=== PATIENT | male | born 1970 | race Caucasian/White ===

== ENCOUNTER 2017-06-14 08:10 | Emergency (ER) | payer OTHER ==
[~2017-06-14] VITALS: Ht 170.2 cm; Wt 63.5 kg
[2017-06-14 08:16] VITALS: BP_SYST 113
[2017-06-14 09:19] VITALS: BP_SYST 110
== END 2017-06-14 09:19 | disposition home or self-care (01) ==
LOC: SED 08:10
DX: J18.9 Pneumonia, unspecified organism (principal)
CPT/HCPCS: 71045; 99283

== ENCOUNTER 2022-04-28 08:50 | Emergency (ER) | payer MEDICAID, OTHER ==
[~2022-04-28] VITALS: Ht 170.2 cm; Wt 59.0 kg
[2022-04-28 09:02] VITALS: BP_SYST 144
[2022-04-28] MEDS ORDERED: CEPH-548 PO ×2 (09:33)
[2022-04-28 09:50] VITALS: BP_SYST 144
== END 2022-04-28 09:54 | disposition home or self-care (01) ==
LOC: SED 08:50
DX: L03.116 Cellulitis of left lower limb (principal); R21 Rash and other nonspecific skin eruption; Z79.899 Other long term (current) drug therapy
CPT/HCPCS: 99283

== ENCOUNTER 2022-04-30 08:13 | Inpatient (IN) | payer MEDICAID ==
[~2022-04-30] VITALS: Ht 170.2 cm; Wt 63.0 kg
[~2022-04-30 08:13] MED LIST: CEPH-548 PO
[2022-04-30 08:15] VITALS: BP_SYST 113
[2022-04-30] MEDS ORDERED: cefTRIAXone 1 GM IVPB PREMIX 50 ML IV ONE (08:30)
[2022-04-30] MEDS ORDERED: KETOROLAC TROMETHAMINE 30 MG VIAL IVP ONE (08:45)
[2022-04-30 09:06] LABS: BASOPHILS # (AUTO) 0.1 K/uL (0.0-0.2); BASOPHILS % (AUTO) 0.7 % (0.0-2.0); EOSINOPHILS # (AUTO) 0.1 K/uL (0.0-0.4); EOSINOPHILS % (AUTO) 1.3 % (0.0-4.0); HEMATOCRIT 39.5 % (36-54); HEMOGLOBIN 13.2 g/dL (14.0-18.0); LYMPHOCYTES # (AUTO) 0.8 K/uL (1.0-5.5); LYMPHOCYTES % (AUTO) 9.5 % (20.5-51.5); MEAN CORPUSCULAR HEMOGLOBIN 31 pg (27-31); MEAN CORPUSCULAR HGB CONC 33 % (32-36); MEAN CORPUSCULAR VOLUME 92 fL (79.0-98.0); NEUTROPHILS # (AUTO) 6.7 K/uL (1.8-7.7); NEUTROPHILS % (AUTO) 77.5 % (40.0-70.0); PLATELET COUNT (AUTO) 208 K/uL (130-430); RED CELL DISTRIBUTION WIDTH 13.8 % (9.0-15.0); WHITE BLOOD COUNT (AUTO) 8.6 K/uL (4.8-10.8)
[2022-04-30 09:14] LABS: ANION GAP 8 (5-15); CALCIUM 9.1 mg/dL (8.4-11.0); CHLORIDE 101 mmol/L (98-107); CREATININE 1.03 mg/dL (0.55-1.30); GLUCOSE 90 mg/dL (70-99); UREA NITROGEN, BLOOD 8 mg/dL (8-21)
[2022-04-30 09:15] LABS: GFR AFRICAN AMERICAN 98 mL/min (>90)
[2022-04-30 09:18] LABS: ALANINE AMINOTRANSFERASE 36 U/L (12-78); ALBUMIN 3.8 g/dL (3.4-4.8); ASPARTATE AMINOTRANSFERASE 27 U/L (10-37); TOTAL BILIRUBIN 0.3 mg/dL (0.0-1.0)
[2022-04-30] MEDS ORDERED: MORPHINE 4 MG INJ. 4 MG/ML VIAL IVP ONE (12:15)
[2022-04-30] MEDS ORDERED: guaiFENesin/DEXTROMETHORPHAN 10 ML UDC PO PRN (16:00)
[2022-04-30] MEDS ORDERED: DOCUSATE SODIUM 100 MG/10 ML UDC PO PRN (16:00)
[2022-04-30] MEDS ORDERED: KETOROLAC TROMETHAMINE 15 MG VIAL IM ONE (16:00)
[2022-04-30] MEDS ORDERED: ONDANSETRON HCL 4 MG/2 ML VIAL IVP PRN (16:00)
[2022-04-30] MEDS ORDERED: ZOLPIDEM TARTRATE 5 MG TABLET PO PRN (16:00)
[2022-04-30] MEDS ORDERED: MORPHINE 2 MG/ML INJ. SYRINGE IVP PRN (16:00)
[2022-04-30 16:14] LABS: PROTHROMBIN TIME 10.3 SECS (9.5-12.5)
[2022-04-30] MEDS: NACL 0.9% 1,000 ML IV SCH (16:24)
[2022-04-30 17:20] LABS: PHOSPHORUS 3.4 mg/dL (2.7-4.5); THYROID STIMULATING HORMONE 1.47 uIu/mL (0.34-4.82)
[2022-04-30] MEDS: PIPERACILLIN/TAZO 3.375/DEX-IS 50 ML IV SCH (18:06)
[2022-04-30 19:38] LABS: FREE T4 (FREE THYROXINE) 1.2 ng/dL (0.6-1.6)
[2022-04-30 19:56] LABS: BILIRUBIN,URINE NEGATIVE (NEGATIVE); BLOOD, URINE NEGATIVE (NEGATIVE); CLARITY/URINE CLEAR (CLEAR); COLOR,URINE YELLOW (YELLOW); GLUCOSE,URINE NEGATIVE (NEGATIVE); KETONES,URINE NEGATIVE (NEGATIVE); LEUKOCYTE ESTERASE ,URINE NEGATIVE (NEGATIVE); NITRITE, URINE NEGATIVE (NEGATIVE); PH,URINE 6.5 (5.0-8.0); PROTEIN URINE NEGATIVE (NEGATIVE); UROBILINOGEN,URINE 0.2 (0.2-1.0)
[2022-04-30 20:12] LABS: BARBITURATE, URINE NEGATIVE (NEG <=200)
[2022-04-30 20:13] LABS: BENZODIAZEPINE, URINE NEGATIVE (NEG <=150); CANNABINOID, URINE NEGATIVE (NEG <=50); COCAINE, URINE NEGATIVE (NEG <=150); METHAMPHETAMINES SCREEN,URINE NEGATIVE (NEG <=500); OPIATE, URINE POSITIVE (NEG <=100); PHENCYCLIDINE SCREEN,URINE NEGATIVE (NEG <=25); UR TRICYCLIC ANTIDEPRESSANTS POSITIVE (NEG <=300); URINE AMPHETAMINE NEGATIVE (NEG <=500); URINE METHADONE NEGATIVE (NEG <=200); URINE OXYCODONE SCREEN NEGATIVE (NEG <=100); URINE PROPOXYPHENE SCREEN NEGATIVE (NEG <=300)
[2022-04-30] MEDS: ACETAMINOPHEN 500 MG TABLET PO PRN (20:34)
[2022-04-30 20:40] VITALS: BP_SYST 108
[2022-05-01 00:53] VITALS: BP_SYST 102
[2022-05-01] MEDS: PIPERACILLIN/TAZO 3.375/DEX-IS 50 ML IV SCH ×4 (05:43→17:46)
[2022-05-01 07:13] LABS: BASOPHILS % (AUTO) 0.9 % (0.0-2.0); EOSINOPHILS # (AUTO) 0.2 K/uL (0.0-0.4); EOSINOPHILS % (AUTO) 4.2 % (0.0-4.0); HEMATOCRIT 35.2 % (36-54); HEMOGLOBIN 11.9 g/dL (14.0-18.0); LYMPHOCYTES # (AUTO) 1.2 K/uL (1.0-5.5); MEAN CORPUSCULAR HEMOGLOBIN 31 pg (27-31); MEAN CORPUSCULAR HGB CONC 34 % (32-36); MEAN CORPUSCULAR VOLUME 92 fL (79.0-98.0); MONOCYTES # (AUTO) 0.7 K/uL (0.0-1.0); MONOCYTES % (AUTO) 12.9 % (1.7-9.3); NEUTROPHILS # (AUTO) 3.1 K/uL (1.8-7.7); PLATELET COUNT (AUTO) 188 K/uL (130-430); RED BLOOD CELL COUNT(AUTO) 3.84 MIL/uL (4.2-6.2); RED CELL DISTRIBUTION WIDTH 13.7 % (9.0-15.0); WHITE BLOOD COUNT (AUTO) 5.2 K/uL (4.8-10.8)
[2022-05-01 07:45] VITALS: BP_SYST 131
[2022-05-01 07:52] LABS: CALCIUM 8.9 mg/dL (8.4-11.0)
[2022-05-01] MEDS: NACL 0.9% 1,000 ML IV SCH ×3 (08:00→15:56)
[2022-05-01] MEDS ORDERED: POTASSIUM CHLORIDE 20 MEQ TAB.PRT.SR PO PRN (09:00)
[2022-05-01] MEDS: PANTOPRAZOLE SODIUM 40 MG TAB PO SCH (09:22)
[2022-05-01] MEDS: HYDROcodone/ACETAMIN 7.5-325 MG TAB PO PRN ×2 (09:24→20:09)
[2022-05-01 11:59] VITALS: BP_SYST 116
[2022-05-01 17:49] VITALS: BP_SYST 103
[2022-05-01] MEDS ORDERED: VANCOMYCIN HCL 1 GM/NS PREMIX 250 ML IV ONE (22:00)
[2022-05-01] MEDS ORDERED: VANCOMYCIN HCL 1000 MG/VIAL IV ONE (23:23)
[2022-05-02] MEDS: PIPERACILLIN/TAZO 3.375/DEX-IS 50 ML IV SCH ×4 (00:15→17:27)
[2022-05-02 01:32] VITALS: BP_SYST 100
[2022-05-02] MEDS ORDERED: AMOX-423 PO ×2 (07:48)
[2022-05-02 08:00] VITALS: BP_SYST 97
[2022-05-02] MEDS: NACL 0.9% 1,000 ML IV SCH ×3 (08:00→16:00)
[2022-05-02 08:23] LABS: BASOPHILS # (AUTO) 0.1 K/uL (0.0-0.2); BASOPHILS % (AUTO) 1.2 % (0.0-2.0); EOSINOPHILS # (AUTO) 0.2 K/uL (0.0-0.4); EOSINOPHILS % (AUTO) 4.6 % (0.0-4.0); HEMATOCRIT 37.9 % (36-54); HEMOGLOBIN 12.6 g/dL (14.0-18.0); LYMPHOCYTES # (AUTO) 1.4 K/uL (1.0-5.5); LYMPHOCYTES % (AUTO) 29.4 % (20.5-51.5); MEAN CORPUSCULAR HEMOGLOBIN 31 pg (27-31); MEAN CORPUSCULAR HGB CONC 33 % (32-36); MEAN CORPUSCULAR VOLUME 92 fL (79.0-98.0); MONOCYTES # (AUTO) 0.6 K/uL (0.0-1.0); MONOCYTES % (AUTO) 12.1 % (1.7-9.3); NEUTROPHILS # (AUTO) 2.5 K/uL (1.8-7.7); NEUTROPHILS % (AUTO) 52.7 % (40.0-70.0); PLATELET COUNT (AUTO) 208 K/uL (130-430); RED BLOOD CELL COUNT(AUTO) 4.11 MIL/uL (4.2-6.2); RED CELL DISTRIBUTION WIDTH 14.1 % (9.0-15.0); WHITE BLOOD COUNT (AUTO) 4.8 K/uL (4.8-10.8)
[2022-05-02 08:44] LABS: CALCIUM 8.8 mg/dL (8.4-11.0); CREATININE 1.12 mg/dL (0.55-1.30)
[2022-05-02] MEDS: PANTOPRAZOLE SODIUM 40 MG TAB PO SCH (09:01)
[2022-05-02 11:56] VITALS: BP_SYST 115
[2022-05-02] MEDS: VANCOMYCIN HCL 750 MG in NS 250 ML IV SCH (11:58)
[2022-05-02 18:08] VITALS: BP_SYST 114
[2022-05-02 20:00] VITALS: BP_SYST 110
[2022-05-03] VITALS: BP_SYST 110
[2022-05-03] MEDS: PIPERACILLIN/TAZO 3.375/DEX-IS 50 ML IV SCH ×4 (00:57→17:13)
[2022-05-03] MEDS: NACL 0.9% 1,000 ML IV SCH ×3 (00:58→16:00)
[2022-05-03] MEDS: VANCOMYCIN HCL 750 MG in NS 250 ML IV SCH ×2 (01:04→11:31)
[2022-05-03] MEDS: ACETAMINOPHEN 500 MG TABLET PO PRN (04:16)
[2022-05-03] MEDS ORDERED: CLIN-142 PO (07:53)
[2022-05-03] MEDS ORDERED: LEVO-62 PO (07:53)
[2022-05-03 08:00] VITALS: BP_SYST 116
[2022-05-03] MEDS: PANTOPRAZOLE SODIUM 40 MG TAB PO SCH (08:10)
[2022-05-03] MEDS: HYDROcodone/ACETAMIN 7.5-325 MG TAB PO PRN (08:11)
[2022-05-03 08:27] LABS: BASOPHILS # (AUTO) 0.1 K/uL (0.0-0.2); BASOPHILS % (AUTO) 1.3 % (0.0-2.0); EOSINOPHILS # (AUTO) 0.3 K/uL (0.0-0.4); EOSINOPHILS % (AUTO) 5.3 % (0.0-4.0); HEMATOCRIT 35.6 % (36-54); LYMPHOCYTES # (AUTO) 1.2 K/uL (1.0-5.5); LYMPHOCYTES % (AUTO) 23.2 % (20.5-51.5); MEAN CORPUSCULAR HEMOGLOBIN 31 pg (27-31); MEAN CORPUSCULAR HGB CONC 34 % (32-36); MEAN CORPUSCULAR VOLUME 92 fL (79.0-98.0); MONOCYTES # (AUTO) 0.7 K/uL (0.0-1.0); MONOCYTES % (AUTO) 14.3 % (1.7-9.3); NEUTROPHILS # (AUTO) 2.9 K/uL (1.8-7.7); NEUTROPHILS % (AUTO) 55.9 % (40.0-70.0); PLATELET COUNT (AUTO) 191 K/uL (130-430); RED BLOOD CELL COUNT(AUTO) 3.86 MIL/uL (4.2-6.2); RED CELL DISTRIBUTION WIDTH 13.4 % (9.0-15.0); WHITE BLOOD COUNT (AUTO) 5.2 K/uL (4.8-10.8)
[2022-05-03 08:41] LABS: CALCIUM 8.6 mg/dL (8.4-11.0); CREATININE 1.25 mg/dL (0.55-1.30)
[2022-05-03 11:47] VITALS: BP_SYST 99
[2022-05-03 14:50] VITALS: BP_SYST 112
[2022-05-03 17:22] VITALS: BP_SYST 111; BP_SYST 142
== END 2022-05-03 19:27 | disposition home or self-care (01) | DRG 383 ==
LOC: SED 08:13 → SMU 13:34
PROVIDERS: ADMIT General Practice; ATTEND General Practice
DX: L03.116 Cellulitis of left lower limb (principal); E78.5 Hyperlipidemia, unspecified; Z20.822 Contact with and (suspected) exposure to COVID-19; Z79.899 Other long term (current) drug therapy
CPT/HCPCS: 36415; 71045; 80048; 80053; 80061; 80307; 81003; 82150; 83037; 83605; 83690; 83735; 83880; 84100; 84439; 84443; 84484; 85025; 85610-TC; 85730-TC; 87040; 93005; 96365; 96375; 99285; J0696; J1885; J2270; J2543; J3370; J7050